=== PATIENT | male | born 2000 | race Hispanic/Latino ===

== ENCOUNTER 2025-07-14 19:17 | Inpatient (IN) | payer BC, OTHER ==
[~2025-07-14] VITALS: Ht 182.9 cm; Wt 108.9 kg
[2025-07-14 19:17] VITALS: TEMP 98.7
[~2025-07-14 19:17] MED LIST: ALBUTEROL SULF8.5 GM; SINGULAIR10 MG
[2025-07-14] MEDS ORDERED: SODIUM CHLORIDE 0.9% 1000ML 2,000 ML ONE (19:21)
[2025-07-14] MEDS: SODIUM CHLORIDE 0.9% 1000ML 2,000 ML IV STA ×2 (19:29→22:25)
[2025-07-14 19:35] LABS: BASOPHILS % 0.9 % (0.0-1.0); EOSINOPHILS % 2.6 % (0.0-6.0); LYMPHOCYTES % 30.7 % (18.0-39.1); MONOCYTES % 9.5 % (4.4-11.3); NEUTROPHILS % 56.2 % (38.7-80.0); RED CELL DISTRIBUTION WIDTH 12.1 % (11.7-14.4)
[2025-07-14 19:58] LABS: EST GLOMERULAR FILTRATION RATE 114.0 ML/MIN (>=60)
[2025-07-14 20:00] LABS: AMPHETAMINES SCREEN,URINE NEGATIVE (NEGATIVE); CANNABINOIDS SCREEN,URINE NEGATIVE (NEGATIVE); COCAINE SCREEN,URINE NEGATIVE (NEGATIVE); METHADONE SCREEN, URINE NEGATIVE (NEGATIVE); OPIATES SCREEN,URINE NEGATIVE (NEGATIVE)
[2025-07-14] MEDS ORDERED: IOPAMIDOL 370 MG/ML 100 ML INFUS..BTL INJ ONE (20:15)
[2025-07-14 20:24] LABS: LEUKOCYTE ESTERASE ,URINE NEGATIVE (NEGATIVE); PROTEIN,URINE DIPSTICK NEGATIVE (NEGATIVE); URINE UROBILINOGEN 0.2 mg/dL (0.2 - 1)
[2025-07-14] MEDS: METOPROLOL TARTRATE INJ 1 MG/ML VIAL IV STA (20:30)
[2025-07-14] MEDS: HYDRALAZINE HCL 20 MG/ML VIAL IV PRN (20:58)
[2025-07-14] MEDS: SODIUM CHLORIDE 0.9% 1000ML 1,000 ML IV SCH (22:00)
[2025-07-14] MEDS ORDERED: ONDANSETRON HCL INJ 2MG/ML 2ML 2 MG/ML VIAL IV PRN (22:00)
[2025-07-14 22:40] VITALS: BP 158/97; PULSE 65; RESP 20; TEMP 98.1; O2SAT 100
[2025-07-14 23:00] VITALS: PULSE 72; RESP 16
[2025-07-14 23:52] VITALS: BP 158/97; PULSE 65; RESP 20; TEMP 98; O2SAT 100
[2025-07-14 23:58] VITALS: BP 158/97; PULSE 65; RESP 20; TEMP 98; O2SAT 100
[2025-07-15] VITALS (10 sets, daily range): BP systolic 148–173; BP diastolic 78–109; PULSE 63–87; RESP 16–21; TEMP 98–98.9; O2SAT 99–100
[2025-07-15] MEDS ORDERED: DIPHENHYDRAMINE HCL 25 MG CAP PO PRN (02:00)
[2025-07-15] MEDS ORDERED: DEXTROSE 50% SYRINGE 50 ML IV PRN (02:00)
[2025-07-15] MEDS ORDERED: POTASSIUM CHLORIDE 20 MEQ TAB CR PO PRN (02:00)
[2025-07-15] MEDS ORDERED: ALBUTEROL/IPRATROPIUM 3 ML NEB NEB PRN (02:00)
[2025-07-15] MEDS ORDERED: BENZONATATE 100 MG CAP PO PRN (02:00)
[2025-07-15] MEDS ORDERED: HYDRALAZINE HCL 20 MG/ML VIAL IV PRN (02:00)
[2025-07-15] MEDS ORDERED: MELATONIN 5 MG TABLET PO PRN (02:00)
[2025-07-15] MEDS ORDERED: SIMETHICONE 80 MG CHEW PO PRN (02:00)
[2025-07-15] MEDS ORDERED: DOCUSATE SODIUM 100 MG CAP PO PRN (02:00)
[2025-07-15] MEDS: ACETAMINOPHEN 325 MG TAB PO PRN (05:18)
[2025-07-15 05:29] LABS: BASOPHILS % 0.9 % (0.0-1.0); EOSINOPHILS % 4.7 % (0.0-6.0); LYMPHOCYTES % 23.9 % (18.0-39.1); MONOCYTES % 10.3 % (4.4-11.3); NEUTROPHILS % 60.0 % (38.7-80.0); RED CELL DISTRIBUTION WIDTH 12.3 % (11.7-14.4)
[2025-07-15 05:59] LABS: EST GLOMERULAR FILTRATION RATE 126.0 ML/MIN (>=60)
[2025-07-15] MEDS: PANTOPRAZOLE SOD 40 MG TABEC PO SCH (09:23)
[2025-07-15 10:49] LABS: CHOL/HDL RATIO 2.7 (3.9-4.7); LDL CHOLESTEROL 79.0 MG/DL (60-130)
[2025-07-15] MEDS ORDERED: GADOBENATE DIMEGLUMINE 1 ML IV ONE (10:56)
[2025-07-15] MEDS: ENOXAPARIN SOD INJ 40 MG/0.4 ML SYR SC SCH (16:29)
[2025-07-16 06:04] LABS: BASOPHILS % 0.8 % (0.0-1.0); EOSINOPHILS % 6.0 % (0.0-6.0); LYMPHOCYTES % 22.3 % (18.0-39.1); MONOCYTES % 9.4 % (4.4-11.3); NEUTROPHILS % 61.3 % (38.7-80.0); RED CELL DISTRIBUTION WIDTH 11.9 % (11.7-14.4)
[2025-07-16 06:38] LABS: EST GLOMERULAR FILTRATION RATE 128.0 ML/MIN (>=60); PHOSPHORUS 3.5 MG/DL (2.3-4.7)
[2025-07-16 06:44] VITALS: PULSE 65; RESP 20; O2SAT 99
[2025-07-16 08:50] VITALS: BP 160/96; PULSE 64; RESP 18; TEMP 98; O2SAT 100
[2025-07-16] MEDS: LOSARTAN POTASSIUM 100 MG TAB PO SCH (09:10)
[2025-07-16 11:00] VITALS: BP 168/91; PULSE 66; RESP 18; TEMP 98.1; O2SAT 100
[2025-07-16 15:15] VITALS: BP 155/81; PULSE 88; RESP 18; TEMP 98.5; O2SAT 100
== END 2025-07-16 16:10 | disposition home or self-care (01) | DRG 897 ==
LOC: ER 19:20 → ERHOLD 21:57 → MED/SURG2 23:43 → OBSVTOIN 07-15 16:15
PROVIDERS: ADMIT Internal Medicine; ATTEND Internal Medicine
DX: F10.129 Alcohol abuse with intoxication, unspecified (principal); I67.4 Hypertensive encephalopathy; I16.0 Hypertensive urgency; R55 Syncope and collapse; Y90.6 Blood alcohol level of 120-199 mg/100 ml; J45.909 Unspecified asthma, uncomplicated; F19.10 Other psychoactive substance abuse, uncomplicated
CPT/HCPCS: 36415; 36600; 70450; 70553; 71275; 74174; 80048; 80053; 80061; 80307; 80320; 81001; 82550; 82607; 83690; 83735; 83880; 84100; 84443; 84484; 85025; 93005; 93306; 94799; 99284; G0378; J0360; J1650; J2470; J7030; Q9967